=== PATIENT | male | born 1990 | race African-American/Black ===

== ENCOUNTER 2021-09-10 08:12 | Emergency (ER) | payer MEDICAID, SELFPAY ==
--- NOTE | ~2021-09-10 | XR_ITS ---
EXAMINATION: XR CHEST CLINICAL INFORMATION: Difficulty breathing COMPARISON: None TECHNIQUE: Frontal view of the chest was obtained. FINDINGS: No significant abnormality is noted involving the heart, lungs, mediastinum, bony thorax or soft tissues. XR/XR chest 1V IMPRESSION: No acute disease
[2021-09-10 08:56] VITALS: BMI 27.1
[2021-09-10 09:02] VITALS: BP 137/86; PULSE 86; RESP 14; TEMP 36.8; O2SAT 98
[2021-09-10 09:15] LABS: COVID-19 Test Negative (Negative)
--- NOTE | 2021-09-10 09:15 | ED.URI ---
HPI - URI/Sore Throat General Chief Complaint: Upper Respiratory Symptoms Stated Complaint: diff breathing, cough Time Seen by Provider: 09/10/21 08:47 History of Present Illness HPI Narrative: Patient is a 31-year-old male presents today with coughing upper respiratory symptoms. Patient did not receive his coronavirus vaccine. No history of asthma in the past. Positive history using marijuana. No history of smoking. Coughing congestion generalized malaise. Symptoms been ongoing for last couple days. Positive decreased p.o. intake. Related Data Previous Rx's Medication Instructions Recorded prednisone 20 mg tablet 40 mg PO DAILY #10 tab 09/10/21 Allergies Allergy/AdvReac Type Severity Reaction Status Date / Time shellfish derived Allergy Unknown ANAPHYLAXIS Unverified 07/22/20 16:03 [SHELLFISH DERIVED] Review of Systems Review of Systems: Positive generalized malaise Positive shortness of breath All systems reviewed otherwise negative [facility] Past Medical History Attestation statement: The following information was validated with the patient. Social History Social History Advance Directives: No Physical Exam Vital Signs: Vital Signs: Last Vital Signs Temp 98.3 F 09/10/21 09:02 Pulse 86 09/10/21 09:02 Resp 14 09/10/21 09:02 BP 137/86 09/10/21 09:02 Pulse Ox 98 09/10/21 09:02 Body Mass Index 27.1 Appearance: Alert. Oriented X3. No acute distress. Eyes: Pupils equal, round and reactive to light. ENT: Pharynx normal. Neck: Normal inspection. Neck supple. No lymph nodes noted. No crepitus CVS: Normal heart rate and rhythm. Pulses normal. Normal S1 and S2 Respiratory: No respiratory distress. Positive wheezing bilaterally Abdomen: Soft and nontender. No rigidity. No distention. good BS x4 Skin: Skin warm and dry. Normal skin color. Normal skin turgor. Extremities: No lower extremity edema. Neurovascular intact to all extremities. No Lacerations. No Rash Neuro: Oriented X 3. No motor deficit. No sensory deficit. Moving all extermities. No slurred speech MDM - URI/Sore Throat MDM Narrative Medical decision making narrative: Given steroids. Symptoms improved with time. We will go ahead and discharge patient home. Repeat exam lungs are clear. Will continue steroid for a few days. In stable condition. Medical Records Attestation: I reviewed the patient's medical records. Lab Data Attestation: I reviewed the patient's lab results. Labs: Lab Results 09/10/21 Range/Units 08:47 COVID-19 ([facility]) Negative (Negative) COVID-19 Clin Com See Note Discharge Plan Discharge Clinical Impression: Upper respiratory infection, Asthma Patient Disposition: Home, Self-Care Instructions: Asthma (ED), Upper Respiratory Infection (ED) Prescriptions: New prednisone 20 mg tablet 40 mg PO DAILY Qty: 10 RF: 0 Referrals: [facility] [Primary Care Provider] - 2 days
[2021-09-10] MEDS: predniSONE 20 MG TABLET 60 MG PO (09:35)
[2021-09-10] MEDS: Albuterol Sulfate 90 MCG 8 GM INHALER 2 PUFF INHALE (09:36)
[2021-09-10 11:16] LABS: Influenza A PCR NEGATIVE (Negative); Influenza B PCR NEGATIVE (Negative); Resp Syncy Virus RNA Qual PCR NEGATIVE (Negative); SARS COV2 PCR INHOUSE NEGATIVE (Negative)
== END 2021-09-10 10:48 | disposition home or self-care (01) ==
PROVIDERS: Emergency Provider Emergency Medicine Emergency Medical Services
DX: R06.02 Shortness of breath (principal); J06.9 Acute upper respiratory infection, unspecified; J45.909 Unspecified asthma, uncomplicated; Z20.822 Contact with and (suspected) exposure to COVID-19; Z79.899 Other long term (current) drug therapy
CPT/HCPCS: 0241U; 36415; 71045; 87635; 99283; 99284

== ENCOUNTER 2022-10-21 23:04 | Emergency (ER) | payer MEDICAID, SELFPAY ==
[2022-10-22 00:18] VITALS: BP 130/74; PULSE 64; RESP 16; TEMP 36.3; O2SAT 98; BMI 26.9
--- NOTE | 2022-10-22 01:00 | ED_ITS ---
HPI - Allergic Reaction General Chief complaint: Allergic Reaction Stated complaint: allergic reac. to shrimp, hives, meds not working Time Seen by Provider: 10/22/22 00:55 Source: patient Mode of arrival: ambulatory Limitations: no limitations History of Present Illness HPI narrative: Patient comes to the emergency room complaining of an allergic reaction to shellfish. Patient states that he accidentally ate some shellfish that was mixed in his food. Patient complaining of hives, itching all over his body, foreign body sensation in his throat without difficulty swallowing or breathing. Prior to arrival, patient ingested 50 mg of Benadryl Related Data Previous Rx's Medication Instructions Recorded prednisone 20 mg tablet 40 mg PO DAILY #10 tabs 09/10/21 epinephrine 0.3 mg/0.3 mL 0.3 mg (0.3 mL) IM Q4H PRN 10/22/22 injection, auto-injector (EpiPen) anaphylaxis #2 ea Allergies Allergy/AdvReac Type Severity Reaction Status Date / Time shellfish derived Allergy Unknown ANAPHYLAXIS Verified 10/22/22 01:18 [SHELLFISH DERIVED] Review of Systems Review of Systems: Constitutional : No Weight loss, No Fever, No Chills, No Night Sweats, No Fatigue, No Malaise ENT/Mouth : No Hearing loss, No Ear Pain, No Nasal Congestion, No Sinus Pain, No Hoarseness, complaining of 40 body sensation in his throat, No sore throat, No Rhinorrhea, No Swallowing Difficulty Eyes: No Eye Pain, No Swelling, No Redness, No Foreign Body, No Discharge, No Vision Changes Cardiovascular : No Chest Pain, No SOB, No Dyspnea on Exertion, No Orthopnea, No Edema, No Palpitations Respiratory : No Cough, No Sputum, No Wheezing, No Smoke Exposure, No Dyspnea Gastrointestinal : No Nausea, No Vomiting, No Diarrhea, No Constipation, No abdominal Pain, No Hematochezia, No Melena Genitourinary : no irregular bleeding, No Dysuria, No Urinary Frequency, No Hematuria, No Urinary Incontinence, No Urgency, No Flank Pain, No Urinary Flow Changes, No Hesitancy Musculoskeletal : No joint pain, No Myalgias, No Joint Swelling Skin : Complaining of hives and itching all over the body Neuro : No Weakness, No Numbness, No Paresthesias, No Loss of Consciousness, No Dizziness, No Headache Psych : No Anxiety/Panic, No Depression, No SI/HI/AH/VH, No Social Issues, Heme/Lymph: No Bruising, No Bleeding,No Lymphadenopathy Endocrine : No Polyuria, No Polydipsia, No Temperature Intolerance [facility] Social History Social History Advance Directives: No Advance Directives Information Provided: No Physical Exam ED Vital Signs: Vital Signs - 24 hr 10/22/22 00:18 10/22/22 02:33 Temperature 97.4 F 98.4 F Pulse Rate 64 73 Respiratory Rate 16 16 Blood Pressure 130/74 120/67 Pulse Oximetry 98 98 Oxygen Delivery Method Room Air Room Air BMI result Body Mass Index 26.9 Const Other: Appearance: Alert. Oriented X3. No acute distress. Eyes: Pupils equal, round and reactive to light. ENT: Mildly swollen uvula, airway patent, no tongue or lip swelling Neck: Normal inspection. Neck supple. No lymph nodes noted. No crepitus CVS: Normal heart rate and rhythm. Pulses normal. Normal S1 and S2 Respiratory: No respiratory distress. Breath sounds normal. No Wheezing. No rales Abdomen: Soft and nontender. No rigidity. No distention. Skin: Diffuse hives head to toe Extremities: No lower extremity edema. No Lacerations. No Rash Neuro: Oriented X 3. No motor deficit. No sensory deficit. Moving all extremities. No slurred speech. CN 2 through 12 grossly intact Psych: calm, cooperative, normal affect Course Course Course Narrative: Patient has no airway compromise, patient being given IV fluids, diphenhydramine, famotidine and Solu-Medrol After treatment, patient feels much better, hives resolved. Edema in the uvular resolved as well. No wheezing. Medications Administered Discontinued Medications Generic Name Dose Route Start Last Admin Trade Name Freq PRN Reason Stop Dose Admin Diphenhydramine HCl 50 mg 10/22/22 00:58 10/22/22 01:19 Diphenhydramine Hcl 50 Mg/Ml Vial IVPUSH 10/22/22 00:59 50 mg ONCE ONE Administration Famotidine 20 mg 10/22/22 00:58 10/22/22 01:19 Famotidine/Pf 20 Mg/2 Ml Vial IVPUSH 10/22/22 00:59 20 mg ONCE ONE Administration Sodium Chloride 1,000 mls @ 999 mls/hr 10/22/22 00:58 10/22/22 01:20 Ns IVCONT 10/22/22 01:58 999 mls/hr .Q1H1M ONE Administration Methylprednisolone Sodium Succinate 125 mg 10/22/22 00:58 10/22/22 01:19 Methylprednisolone Sod Succ 125 Mg/2 Ml Vial IVPUSH 10/22/22 00:59 125 mg ONCE ONE Administration Medical Decision Making Differential Diagnosis Differential Diagnoses: The differential diagnosis associated with the presentation includes (Allergic reaction, angioedema) Admission/Observation Consideration of admission/observation: Escalation of care including admission/observation considered (Patient was observed in the emergency room for 3 hours, uvular edema resolved. Patient improved with IV treatment, ready to be discharged) Critical Care Time Critical Care Time Critical Care Time: Yes Total Critical Care Time: 45 Attestation: I have personally provided critical care time. Time includes review of lab data, radiology results, discussion with consultants, and monitoring for potential decompensation. Intervention performed as documented. Discharge Plan Discharge Clinical Impression: Allergic reaction Patient Disposition: Home, Self-Care Instructions: Food Allergy (ED) Additional Instructions: Please follow-up with your primary care physician tomorrow. If you have any worsening or new symptoms, please return to the emergency room or call 911 Prescriptions: New epinephrine [EpiPen] 0.3 mg/0.3 mL auto-injector 0.3 mg IM Q4H PRN (Reason: anaphylaxis) Qty: 2 0RF No Action prednisone 20 mg tablet 40 mg PO DAILY Qty: 10 0RF
[2022-10-22] MEDS: Famotidine/PF 20 MG/2 ML VIAL IVPUSH (01:19)
[2022-10-22] MEDS: diphenhydrAMINE HCL 50 MG/ML VIAL IVPUSH (01:19)
[2022-10-22] MEDS: methylPREDNISolone Sod Succ 125 MG/2 ML VIAL IVPUSH (01:19)
[2022-10-22] MEDS: 0.9 % Sodium Chloride 1,000 ML 999 ML IVCONT (01:20)
[2022-10-22 02:33] VITALS: BP 120/67; PULSE 73; RESP 16; TEMP 36.9; O2SAT 98
== END 2022-10-22 03:07 | disposition home or self-care (01) ==
PROVIDERS: Emergency Provider Emergency Medicine
DX: L50.0 Allergic urticaria (principal); Z79.899 Other long term (current) drug therapy
CPT/HCPCS: 96361; 96374; 96375; 99283; 99284; J1200; J2930

== ENCOUNTER 2024-05-13 16:07 | Outpatient (REF) | payer MEDICAID, SELFPAY ==
[2024-05-13 17:35] LABS: MANUAL DIFF FLAG NO
[2024-05-13 17:44] LABS: Eosinophils Absolute Auto 0.1 X10*3/uL (0.0-0.4); Eosinophils Percent Auto 2.7 % (0-4); Hemoglobin 14.6 g/dl (14.0-18.0); Imm Gran Abs Auto 0.01 X10*3/uL (0.00-0.03); Imm Gran Pct Auto 0.2 % (0.0-0.4); Lymphocytes Absolute Auto 2.4 X10*3/uL (1.2-4.9); Mean Corpuscular HGB Conc 31.1 g/dl (31.0-36.0); Mean Corpuscular Hemoglobin 25.3 pg (27.0-33.0); Mean Corpuscular Volume 81.5 fL (80.0-98.0); Mean Platelet Volume 9.6 fL (9.4-12.4); Monocytes Absolute Auto 0.4 X10*3/uL (0.1-1.2); Monocytes Percent Auto 8.7 % (2-11); Neutrophils Absolute Auto 1.2 x10*3/uL (2.0-8.3); Neutrophils Percent Auto 29.4 % (45-73); Platelet Count 221 X10*3/uL (160-400); Red Blood Count 5.77 X10*6/uL (4.60-5.80); Red Cell Distribution Width 13.4 % (11.0-16.0); White Blood Count 4.1 X10*3/uL (4.8-10.8)
[2024-05-13 18:17] LABS: Alanine Aminotransferase 13 U/L (0-40); Albumin Level 4.9 g/dL (3.5-5.0); Alkaline Phosphatase 44 U/L (39-117); Anion Gap 15 (12-20); Aspartate Amino Transferase 20 U/L (5-37); Bilirubin Total 0.7 mg/dL (0.0-1.0); Blood Urea Nitrogen 13 mg/dL (9-16); Calcium 10.6 mg/dL (8.4-10.2); Carbon Dioxide 29 mmol/L (22-29); Chloride 105 mmol/L (96-108); Estimated Glomerular Filt Rate > 60; Glucose Random 74 mg/dL (60-115); Potassium 4.7 mmol/L (3.3-5.1); Sodium 144 mmol/L (135-145); Total Protein 8.5 g/dL (6.5-8.0)
[2024-05-15 22:28] LABS: TS Negative Control Passed; TS Panel A 0; TS Panel B 0; TS Positive Control Passed; TSpotTB Negative (Negative)
== END 2024-05-13 16:08 | disposition home or self-care (01) ==
LOC: HO.HHCL 16:07
PROVIDERS: Visit Provider Nurse Practitioner Family
DX: R04.2 Hemoptysis (principal)
CPT/HCPCS: 36415; 80053; 85025; 86481

== ENCOUNTER 2025-06-28 14:15 | Emergency (ER) | payer OTHER, SELFPAY ==
--- NOTE | ~2025-06-28 | XR_ITS ---
CLINICAL HISTORY: cough 2 view chest x-ray Comparison: None provided Findings: No consolidation or effusion. Heart size is normal. No acute fracture. IMPRESSION: 1. No acute findings. This document has been electronically signed by: Brielle Rowland MD on 06/28/2025 15:33:28
[2025-06-28 14:18] VITALS: BP 146/84; PULSE 64; RESP 18; TEMP 36.3; O2SAT 100; BMI 25.7
--- NOTE | 2025-06-28 14:19 | ED.GENADULT ---
HPI - General Adult General Chief complaint: Upper Respiratory Symptoms Stated complaint: cough Time Seen by Provider: 06/28/25 16:05 History of Present Illness ED Provider: maria alejandra HPI narrative: 35 M cough x 5 d subjective wheeze worse in the morning. He feels these came on after sleeping [place] his [place]'s [place] many felt it may have been moldy in the air there. Smokes marijuana leaf no tobacco history denies any asthma or allergic history no skin rash GI symptoms denies chest pain. Feels mildly short of breath. No leg swelling no history of DVT or PE. Related Data Previous Rx's ?Medication ?Instructions ?Recorded prednisone 20 mg tablet 40 mg (2 x 20 mg) PO DAILY #10 tabs 09/10/21 epinephrine 0.3 mg/0.3 mL 0.3 mg (0.3 mL) IM Q4H PRN 10/22/22 injection, auto-injector (EpiPen) anaphylaxis #2 ea albuterol sulfate 90 mcg/actuation 2 puff inhalation Q6H PRN 06/28/25 aerosol inhaler shortness of breath or wheezing #8.5 grams benzonatate 100 mg capsule 100 mg PO BID PRN cough #14 caps 06/28/25 cetirizine 10 mg capsule 10 mg PO DAILY 4 days #4 caps 06/28/25 prednisone 20 mg tablet 60 mg (3 x 20 mg) PO DAILY 4 days 06/28/25 #12 tabs Allergies Allergy/AdvReac Type Severity Reaction Status Date / Time shellfish derived (SHELLFISH Allergy Unknown ANAPHYLAXIS Verified 06/28/25 14:22 DERIVED) [facility] Social History Social History Smoked in Last 30 Days: No Use of substances other than those prescribed or required for medical reasons: Yes Substance Use Type: Marijuana Substance Use Frequency: Daily Advance Directives: No Advance Directives Information Provided: No Do you have a plan to hurt others: No Plan Physical Exam ED Exam Exam: EXAM: Gen: Alert, awake, well appearing, well hydrated. Head: Atraumatic Eyes: Anicteric, Normal conjunctiva. ENT: Moist mucosa, no pallor. ? Neck: Supple. Skin: ?No observable rash or bruising on exposed or examined skin Respiratory: Breathing comfortably, No distress. Scattered wheeze and rhonchi. Speaking full sentences does not appear distress no stridor Cardiovascular: Regular rate and rhythm. No murmurs or rub. Well perfused periphery, warm extremities. No edema. ? Abdominal: No focal tenderness. Soft, no objective distension. No palpable masses or obvious organomegaly. ?No guarding, no rebound tenderness or other peritoneal findings. : No flank tenderness. Neuro: Alert. Gross movement of all extremities intact. ? Psych: Calm. Cooperative. MSK: No grossly visible deformity. Vital signs: See flowsheet Vital Signs: Vital Signs - 24 hr 06/28/25 14:18 Temperature 97.3 F Pulse Rate 64 Respiratory Rate 18 Blood Pressure 146/84 H Pulse Oximetry 100 BMI result Body Mass Index 25.7 Course Course Course Narrative: RME, this is a rapid medical exam performed by Yann Mullen please refer to primary provider for complete H&P- 35 year old male presents for evaluation of a cough. He reports upper respiratory symptoms 5 days ago. He feels better, but has a lingering cough that he would like evaluated. He is well appearing, plan for x-ray and COVID testing Medical Decision Making Medical Decision Making MDM Narrative: Medical Decision Making: Young otherwise healthy male marijuana smoker with cough for 5 days. Possibly allergic versus viral bronchitis. Looks well no distress no hypoxia. No hemoptysis or PE risk factors doubt PE. Presumed allergic versus inflammatory versus viral bronchitis. Your chest x-ray clear. Plan for symptomatic relief supportive therapy including steroid albuterol spacer Preliminary Favored Differential Diagnosis: Allergic versus inflammatory versus viral bronchitis less likely pneumonia among additional considered etiologies Testing Interpreted Independently: ?See below for details Radiology or Lab testing Results Reviewed: ?See below for details Consults: ?See below for details Independent Historians/External Chart Reviews: ?See below for details Social Determinants of Health Impacting MDM/Planning: ?See below for details Social Determinants of Health Impacting MDM/Planning: Not Applicable Lab Data MDM Lab Attestation statement: I reviewed the patient's lab results. Labs: Lab Results 06/28/25 Range/Units 14:23 COVID-19 ([facility]) Negative (Negative) COVID-19 Clin Com See Note Independent Interpretation I performed an independent interpretation of an: Plain X-Ray (No infiltrate or effusion) Radiology Impression Discussion of test interpretation with radiology: I have reviewed the radiologist's reading. Prescription Management I considered prescription management with: Other (Steroid and albuterol) Discharge Plan Discharge Clinical Impression: Bronchitis Instructions: Acute Bronchitis (ED) Additional Instructions: DISCHARGE DIAGNOSES: Cough likely inflammatory or allergic possibly viral cough HISTORY OF PRESENTATION: Cough for about 5 days EMERGENCY DEPARTMENT COURSE,TESTS, TREATMENTS: While in the ED today you had an x-ray which was negative for pneumonia or any other acute findings and you had a negative COVID test DISCHARGE MEDICATIONS: ?We have prescribing prednisone a steroid to reduce inflammation in the lungs, Tessalon Perles cough medicine, albuterol which you should be used with a spacer and cetirizine FOLLOW-UP: ?Call your primary or general physician soon as possible to discuss your symptoms, your ED visit and to discuss follow up plans Call your primary doctor to reassess your lung examination determine if you need referral to merchandising manager given recurrent episodes of cough and or wheeze INSTRUCTIONS ?& RETURN PRECAUTIONS: If any symptoms change first call your primary physician, if it is after-hours your primary doctors office should have a provider dental surgeon you can speak with. If the symptoms are severe or very concerning to you then call 911 or return to the ED. We recommend you stop smoking marijuana as it may be affecting her lungs are Emmanuel Brown MD Emergency Physician [facility] Prescriptions: New prednisone 20 mg tablet 60 mg PO DAILY 4 Days Qty: 12 0RF albuterol sulfate 90 mcg/actuation HFA aerosol inhaler 2 puff inhalation Q6H PRN (Reason: shortness of breath or wheezing) Qty: 8.5 0RF cetirizine 10 mg capsule 10 mg PO DAILY 4 Days Qty: 4 0RF benzonatate 100 mg capsule 100 mg PO BID PRN (Reason: cough) Qty: 14 0RF No Action epinephrine [EpiPen] 0.3 mg/0.3 mL auto-injector 0.3 mg IM Q4H PRN (Reason: anaphylaxis) Qty: 2 0RF prednisone 20 mg tablet 40 mg PO DAILY Qty: 10 0RF Print Language: Mohawk
--- OUTSIDE RECORDS SUMMARY | 2025-06-28 14:29 | XMS_ITS | Clinical Summary ---
Author Organization [facility] Address [address] [place] [address] [address] [place] [address] Care Team Providers Care Patient Case Manager Name Role Phone Unavailable Primary Care Provider Unavailabl e Allergies Active Allergy Reactions Criticality Noted Date Comments Shellfish Allergy Hives,Shortness of breath High 07/2024 Medications No known medications Active Problems No known active problems Family History Medical History Relation Name Comments Hypertension Maternal Grandmother Relation Name Status Comments Maternal Grandmother Social History Tobacco Use Types Packs/Day Years Used Date Smoking Tobacco: Never Smokeless Tobacco: Never Tobacco Cessation:Counseling Given: Not Answered Alcohol Use Standard Drinks/Week Comments Not Currently 0 (1 standard drink = 0.6 oz pur e alcohol) Sex and Gender Information Value Date Recorded Sex Assigned at Male 05/13/2024 12:07 PM EDT Legal Sex Male 11:54 AM EDT Gender Identity Male 05/13/2024 12:07 PM EDT Sexual Orientation Straight 05/13/2024 12 :07 PM EDT Last Filed Vital Signs Vital Sign Reading Time Taken Comments Blood Pressure 121/79 05/13/2024 12:10 PM EDT Pulse 56 05/13/2024 12:10 PM EDT Temperature 37.3 C (99.2 F) 05/13/2024 12:10 PM EDT Respiratory Rate - - Oxygen Saturation - - Inhaled Oxygen Concentration - - Weight 82.1 kg (181 lb) 05/13/2024 12:10 PM EDT Height - - Body Mass Index - - Plan of Treatment Health Maintenance Due Date Last Done Comments Depression Screening 1989 HIV Screening 1989 Lipid Panel 1989 SDOH Screening 1989 Disability Screening 1989 Alcohol/Substance Use Screening 2001 Family Planning (PISQ) 2004 HPV Vaccines (1 - Male 3-dos e series) 2004 Hepatitis C Screening 2007 DTaP/Tdap/Td Vaccines (1 - Tdap) 2008 Hepatitis B Vaccines (1 of 3 - 19+ 3-dose series) 2008 COVID-19 Vaccine (1 - 2023-2 5 season) 2024 Tobacco Screening 05/13/2025 05/13/2024 Influenza Vaccine (#1) 2025 Zoster Vaccines (1 of 2) 2039 RSV Patients and Pa tients Aged 60 years or older (1 - 1-dose 75+ series) 2064 HIB Vaccines Aged Out No longer eligi ble based on patient's age to complete this topic Hepatitis A Vaccines Aged Out No long er eligible based on patient's age to complete this topic IPV Vaccines Aged Out No longer eligi ble based on patient's age to complete this topic Meningococcal B Vaccine Aged Out No l onger eligible based on patient's age to complete this topic Meningococcal Vaccine Aged Out No roberta [place] eligible based on patient's age to complete this topic Pneumococcal Vaccine: Pediat rics (0 to 5 Years) and At-Risk Patients (6 to 49) Years Aged Out No longer eligi ble based on patient's age to complete this topic RSV under 20 months Aged Out No longe r eligible based on patient's age to complete this topic Rotavirus Vaccines Aged Out No longer eligible based on patient's age to complete this topic Insurance [facility] C[facility]
--- OUTSIDE RECORDS SUMMARY | 2025-06-28 14:29 | XMS_ITS | Clinical Summary ---
Author Organization [facility] ity Address [address] [place] [address] Care Team Providers Care Railroad Signal Operator Name Role Phone Unavailable Primary Care Provider Unavailabl e Social History Tobacco Use Types Packs/Day Years Used Date Smoking Tobacco: Never Assessed Sex and Gender Information Value Date Recorded Sex Assigned at Not on file Legal Sex Male 8:57 AM EST Gender Identity Not on file Sexual Orientation Not on file Plan of Treatment Health Maintenance Due Date Last Done Comments DTaP,Tdap,and Td Vaccines (1 - Tdap) 2008 Hepatitis B Vaccines (1 of 3 - 19+ 3-dose series) 2008 COVID-19 Vaccine ( - 2023-2 5 season) 2024 Depression Screening 11/05/2024 Influenza Vaccine (#1) 2025 HIB Vaccines Aged Out No longer eligi ble based on patient's age to complete this topic HPV Vaccines Aged Out No longer eligi ble based on patient's age to complete this topic Hepatitis A Vaccines Aged Out No long er eligible based on patient's age to complete this topic IPV Vaccines Aged Out No longer eligi ble based on patient's age to complete this topic MMR Vaccines Aged Out No longer eligi ble based on patient's age to complete this topic Meningococcal ACWY Vaccine Aged Out N o longer eligible based on patient's age to complete this topic Meningococcal B Vaccine Aged Out No l onger eligible based on patient's age to complete this topic Pneumococcal Vaccine: Pediat rics (0 to 5 Years) and At-Risk Patients (6 to 49 Years) Aged Out No longer eligible b ased on patient's age to complete this topic RSV Immunization Patients Un cali 20 months Aged Out No longer eligible b ased on patient's age to complete this topic Varicella Vaccines Aged Out No longer eligible based on patient's age to complete this topic
[2025-06-28 14:46] LABS: COVID-19 Test Negative (Negative); IDNOW Serial# 6674DD1D
[2025-06-28 16:53] VITALS: BP 136/72; PULSE 86; RESP 18; TEMP -17.7; TEMP 0; O2SAT 97
== END 2025-06-28 16:55 | disposition home or self-care (01) ==
PROVIDERS: Physician Assistant; Emergency Provider Emergency Medicine
DX: J20.9 Acute bronchitis, unspecified (principal)
CPT/HCPCS: 71046; 87635; 99283; 99284

== ENCOUNTER → 2025-06-28 14:19 | Outpatient (BNV) | payer OTHER, SELFPAY | PROVIDERS: Visit Provider Radiology Diagnostic Radiology | DX: R05.9 Cough, unspecified (principal) | CPT/HCPCS: 71046 ==